=== PATIENT | male | born 1990 | race Caucasian/White ===

== ENCOUNTER 2021-07-08 11:08 | Emergency (ER) | payer BC, SELFPAY ==
[2021-07-08 11:19] VITALS: BP 129/79; PULSE 86; RESP 18; TEMP 37.4; O2SAT 100
--- NOTE | 2021-07-08 11:31 | ED.URI ---
HPI - URI/Sore Throat General Chief Complaint: Upper Respiratory Infection Stated Complaint: Body Aches,Congestion,Fatigue Time Seen by Provider: 07/08/21 11:31 Source: patient and RN notes reviewed Mode of arrival: ambulatory Limitations: no limitations History of Present Illness HPI Narrative: Wiley is a 30-year-old male patient who ambulated into the [facility]. Patient states he woke up this morning with body aches, chills, nasal congestion, and a fever of 100.5. Patient has not taken any [id number] medications. MD elicited complaint: nasal congestion Related Data Home Medications Medication Instructions Recorded Confirmed No Home Medications 07/08/21 07/08/21 Allergies Allergy/AdvReac Type Severity Reaction Status Date / Time No Known Allergies Allergy Unknown Verified 07/08/21 11:26 Review of Systems Review of Systems: CONSTITUTIONAL: +body aches, +fever,+ chills, or sweats. EYES: Denies visual changes, redness, or discharge. ENT: Denies rhinorrhea,+ congestion, sore throat, or otalgia. CARDIOVASCULAR: Denies chest pain, palpitations, or edema. RESPIRATORY: Denies cough or dyspnea. GASTROINTESTINAL: Denies abdominal pain, nausea, vomiting, or diarrhea. GENITOURINARY: Denies dysuria or hematuria. SKIN: Denies rash, itching, or wounds. MUSCULOSKELETAL: Denies back pain, joint pain, or myalgia. NEUROLOGIC: Denies headache, numbness, tingling, or weakness. PSYCH: Denies depression or anxiety. All systems reviewed & are unremarkable except as noted in HPI and below PMFSH Comments At time of signature, I have reviewed and agree with nursing past medical, surgical, social and family history unless otherwise noted. Please see nursing chart for further information. There is no relevant family history pertinent to the presenting complaint Exam Narrative: GENERAL: Well-appearing, well-nourished, and in no acute distress. HEAD: Normocephalic, atraumatic. EYES: EOMI. No redness or drainage. Conjunctivae normal. ENT: Mucous membranes pink and moist. Nares clear. No rhinorrhea. TMs normal bilaterally. Throat normal. Uvula midline. NECK: Normal AROM. Supple. No lymphadenopathy. CHEST: No respiratory distress. Clear to auscultation. MUSCULOSKELETAL: No bony tenderness. EXTREMITIES: Normal range of motion. No edema. SKIN: Warm, dry, no rash. Capillary refill normal. Normal skin turgor. NEURO: No focal deficits. Alert and oriented x3. Gait steady. PSYCH: Normal affect. No signs of depression or anxiety. Course Vital Signs Vital signs: Vital Signs Temperature 37.4 C 07/08/21 11:19 Pulse Rate 86 07/08/21 11:19 Respiratory Rate 18 07/08/21 11:19 Blood Pressure 129/79 07/08/21 11:19 Pulse Oximetry 100 07/08/21 11:19 Temperature 37.4 C 07/08/21 11:19 Pulse Rate 86 07/08/21 11:19 Respiratory Rate 18 07/08/21 11:19 Blood Pressure 129/79 07/08/21 11:19 Pulse Oximetry 100 07/08/21 11:19 Reviewed MDM - URI/Sore Throat MDM Narrative Medical decision making narrative: Influenza a and B is negative. Patient has only had a 4 to 6 hours of symptoms. He does not qualify for rapid Covid test. Patient will be set up for a PCR test through [employer] drive-through on Wednesday or Wednesday. Patient to follow-up with his primary care physician in 7 to 10 days for continued symptoms. Patient to use [id number] cough and cold medicines to treat symptoms. Differential Diagnosis Differential diagnosis: Likely upper respiratory infection, sinusitis, viral infection and influenza Medical Records Attestation: I reviewed the patient's medical records. Lab Data Attestation: I reviewed the patient's lab results. Critical Care Time Critical Care Time Critical Care Time: No Discharge Plan Discharge Clinical Impression: Upper respiratory infection, viral Patient Disposition: Home, Self-Care Condition: Stable Instructions: Antibiotic Form Additional Instructio
== END 2021-07-08 11:45 | disposition home or self-care (01) ==
PROVIDERS: Emergency Provider Nurse Practitioner Family; PCP Internal Medicine
DX: J06.9 Acute upper respiratory infection, unspecified (principal); Z20.822 Contact with and (suspected) exposure to COVID-19
CPT/HCPCS: 87804; 99213; G0463

== ENCOUNTER → 2021-07-09 03:36 | Outpatient (CLI) | payer BC, SELFPAY ==
[2021-07-09 18:29] LABS: SARS-CoV-2 RNA PCR Positive
== END ==
PROVIDERS: PCP Internal Medicine; Visit Provider Nurse Practitioner Family
DX: U07.1 COVID-19 (principal)
CPT/HCPCS: C9803; U0003; U0005

== ENCOUNTER 2022-10-16 13:51 | Emergency (ER) | payer OTHER, SELFPAY ==
[2022-10-16 13:55] VITALS: BP 109/61; PULSE 75; RESP 16; TEMP 36.3; O2SAT 99
--- NOTE | 2022-10-16 14:00 | ED.URI ---
HPI - URI/Sore Throat General Chief Complaint: Upper Respiratory Infection Stated Complaint: Cough,Congestion,Lt Eye Irritation Time Seen by Provider: 10/16/22 14:00 Source: patient Mode of arrival: ambulatory Limitations: no limitations History of Present Illness HPI Narrative: patient 32-year-old male that presents with 2 weeks of cough, sore throat, congestion that is worse in the mornings and improves throughout the day. States by the time he goes to bed his symptoms are back. Denies any fever, chills, ear pain, headache. States today he woke up with left eye matted shut with pain and irritation. Denies any changes in vision. States he has taken a few doses of Sudafed this week along with Tylenol today for eye pain. Related Data Allergies Allergy/AdvReac Type Severity Reaction Status Date / Time No Known Allergies Allergy Unknown Verified 10/16/22 13:53 Review of Systems Review of Systems: All systems reviewed & are unremarkable except as noted in HPI and below Constitutional: Constitutional: Denies body ache(s), Denies fever(s), Denies headache(s), Denies malaise and Denies weakness Eyes: Eyes: Reports eye discharge, Reports irritation, Reports itchy eyes and Denies loss of vision ENT: Denies otalgia, Denies headache(s), Reports nasal congestion, Denies sinus pain and Reports sore throat Cardiovascular: Cardiovascular: Denies chest pain, Denies irregular heart rhythm and Denies dyspnea Respiratory: Respiratory: Reports cough and Denies dyspnea Gastrointestinal: Gastrointestinal: Denies abdominal pain, Denies melena, Denies hematochezia, Denies diarrhea, Denies nausea and Denies vomiting Musculoskeletal: Musculoskeletal: Denies back pain, Denies myalgias and Denies arthralgias Integumentary/Breasts: Skin/Breast: Denies pruritus and Denies rash Neurologic: Denies headache(s), Denies loss of vision and Denies weakness Psychiatric: Psychiatric: Reports no additional psychiatric complaints PMFSH Comments At time of signature, agree with nursing past medical, surgical, social and family history. There is no relevant family history pertinent to the presenting complaint. Exam Const: General: cooperative, healthy appearing, comfortable, no acute distress and well nourished Nutritional Appearance: well nourished Orientation/consciousness: patient oriented x3 Limitations: no limitations HENMT: Head: normal to inspection, normocephalic and atraumatic Ears: external ears normal and TM's normal bilaterally Face/Nose/Sinus: Normal external nose present, normal facial exam, sinuses nontender and face symmetric Face and sinus: normal facial exam, sinuses nontender and face symmetric Mouth: Yes Normal oral and palatal mucosa present, Yes lip normal and Yes moist mucous membranes Teeth and gingiva: dentition normal Throat: posterior oropharynx normal, tonsils normal and uvula midline Eyes: General: appearance normal, both eyes and all related structures Alignment and Position: alignment normal and position normal Periorbital: periorbital findings normal Eyelids: eyelids normal Conjunctivae: conjunctival abnormality left conjunctival injection diffuse Sclera: scleral abnormality right scleral injection diffuse Pupils: Equal, round and reactive pupils present Neck: Neck: normal visual inspection, full ROM and supple Chest: Chest palpation & inspection: normal inspection of the chest and normal palpation of entire chest wall Resp: Effort & Inspection: normal respiratory effort and able to speak in complete sentences Auscultation: clear to auscultation bilaterally, no crackles, no rales, no rhonchi and no wheezes Cardio: Rate: regular rate Rhythm: regular rhythm Heart sounds: S1 normal heart sound present and S2 normal heart sound present GI: Inspection: normal to inspection Skin: General skin exam: normal color and no rashes or lesions noted Neuro: General: patient oriented x3 and moves all extremities Cranial nerve
== END 2022-10-16 14:16 | disposition home or self-care (01) ==
PROVIDERS: Emergency Provider Nurse Practitioner Family
DX: J06.9 Acute upper respiratory infection, unspecified (principal); H10.9 Unspecified conjunctivitis
CPT/HCPCS: 99213; G0463

== ENCOUNTER 2024-10-04 13:50 | Outpatient (CLI) | payer OTHER, SELFPAY ==
--- NOTE | ~2024-10-04 | CT_ITS ---
EXAMINATION: CT soft tissue neck w con DATE: 10/04/2024 14:10 INDICATION: Jaw swelling. TECHNIQUE: Computed tomography (CT) of the neck was performed with 75 mL Omnipaque-350 intravenous co ntrast. Automated exposure control and iterative reconstruction technique were employed. The dose-nevin gth product was 389.51 mGy-cm. COMPARISON: None FINDINGS: There are no pathologically enlarged lymph nodes. There is 0% stenosis of the proximal inte rnal carotid arteries relative to normal distal artery lumen diameters. The pharynx and larynx are no rmal. The major salivary glands are normal. The paranasal sinuses are clear. The mastoid air cells ar e normal. The mandible and temporomandibular joints are normal. There is mild cervical spondylosis. IMPRESSION: 1. No etiology for the patient's symptoms. Reviewed, dictated and finalized at location B.
== END 2024-10-04 13:51 | disposition home or self-care (01) ==
LOC: MICIMG 13:51
PROVIDERS: PCP Family Medicine; Visit Provider Family Medicine
DX: R60.0 Localized edema (principal)
CPT/HCPCS: 70491; Q9967